=== PATIENT | male | born 1945 | race Caucasian/White ===

== ENCOUNTER → 2017-11-29 11:10 | Outpatient (CLI) | payer OTHER, SELFPAY ==
--- NOTE | 2017-11-29 | DI.RAD.S_ITS ---
PROCEDURE: XR KUB INDICATIONS: KIDNEY STONES TECHNIQUE: One view of the abdomen acquired. COMPARISON: [facility], CR, XR ABDOMEN 1 VIEW, 10/27/2017, 11:22. [facility], CR, XR KUB, 10/14/2017, 16:36. FINDINGS: Surgical changes and devices: The previously present left ureteral stent has been withdrawn. Bowel: Bowel gas pattern is normal. Soft tissues: No new suspicious abdominal calcifications are found, and upper third and lower third right renal collecting system small calculi are again seen measuring approximately 3 mm and 2 mm respectively on the right. The calculus at the left lower third collecting system appears to have diminished in conspicuity, possibly reflecting lithotripsy.. Visualized solid organ contours appear normal in size. Bones: No suspicious bony lesions. IMPRESSION: Removal of double pigtail left ureteral stent subsequent to the comparison plain film from 10/27/17. Possible interval fragmentation procedure involving the lower third collecting system calculus on the left where small fragments appear present rather than a single formed stone (which could be seen 10/27/17). 2 small right-sided renal collecting system calculi (upper third and lower third) appear stable over time. Dictated by: Ken Duenas M.D. on 11/29/2017 at 12:41 Approved by: Ken Duenas M.D. on 11/29/2017 at 12:46
[2017-11-29 12:53] LABS: Calcium 9.4 mg/dL (8.4-10.2)
[2017-11-30 14:44] LABS: Parathyroid Hormone Int 29 pg/mL (14-64)
== END ==
PROVIDERS: PCP Family Medicine; Visit Provider Specialist
DX: N20.0 Calculus of kidney (principal)
CPT/HCPCS: 36415; 74018; 82310; 83970; 84550

== ENCOUNTER → 2018-01-12 14:49 | Outpatient (CLI) | payer OTHER, SELFPAY ==
--- NOTE | 2018-01-12 | DI.RAD.S_ITS ---
PROCEDURE: XR KUB INDICATIONS: KIDNEY STONES TECHNIQUE: One view of the abdomen acquired. COMPARISON: [facility], , XR KUB, 11/29/2017, 11:25. FINDINGS: Surgical changes and devices: 2 calcification is seen projected over the mid-upper pole the right kidney largest measuring 8 mm and a smaller 3 mm. Posterior small calcifications project over the lower one third of left kidney similar to prior examination largest measuring 5 mm. Bowel: Bowel gas pattern is normal. Soft tissues: No suspicious abdominal calcifications. Visualized solid organ contours appear normal in size. Bones: No suspicious bony lesions. IMPRESSION: Bilateral renal calcifications similar to prior examination. Dictated by: Donavan SALAS Interpreted: Mireille Espinoza MD on 01/12/2018 at 15:20 Approved by: Mireille Espinoza M.D. on 01/12/2018 at 16:28
== END ==
PROVIDERS: PCP Family Medicine; Visit Provider Specialist
DX: N20.0 Calculus of kidney (principal)
CPT/HCPCS: 74018

== ENCOUNTER → 2018-02-14 14:59 | Outpatient (CLI) | payer OTHER, SELFPAY ==
--- NOTE | 2018-02-14 15:02 | DI.RAD.S_ITS ---
PROCEDURE: XR KUB INDICATIONS: KIDNEY STONES TECHNIQUE: One view of the abdomen acquired. COMPARISON: [facility], CR, XR KUB, 10/14/2017, 16:36. [facility], CR, XR KUB, 11/29/2017, 11:25. [facility], CR, XR KUB, 01/12/2018, 15:00. FINDINGS: Surgical changes and devices: None. Bowel: Bowel gas pattern is normal. Soft tissues: Calcific densities are present bilaterally in the areas of kidneys, consistent with renal calculi. Compared with the last exam, there is no significant change. Visualized solid organ contours appear normal in size. Bones: No suspicious bony lesions. IMPRESSION: Persistent bilateral renal calculi. Dictated by: Augustine Funes M.D. on 02/14/2018 at 16:36 Approved by: Augustine Funes M.D. on 02/14/2018 at 16:37
== END ==
PROVIDERS: PCP Family Medicine; Visit Provider Specialist
DX: N20.0 Calculus of kidney (principal)
CPT/HCPCS: 74018

== ENCOUNTER → 2018-03-20 11:26 | Outpatient (CLI) | payer OTHER, SELFPAY ==
--- NOTE | 2018-03-20 | DI.RAD.S_ITS ---
PROCEDURE: XR KUB INDICATIONS: KIDNEY STONES TECHNIQUE: One view of the abdomen acquired. COMPARISON: [facility], CR, XR KUB, 02/14/2018, 14:38. [facility], CR, XR KUB, 01/12/2018, 15:00. [facility], CR, XR KUB, 11/29/2017, 11:25. FINDINGS: Surgical changes and devices: None. Bowel: Bowel gas pattern is normal. Soft tissues: No new suspicious abdominal calcifications. Previously present bilateral small renal calculi are again noted. Visualized solid organ contours appear normal in size. Bones: No suspicious bony lesions. IMPRESSION: The punctate bilateral renal collecting system calculi previously documented have not changed in number or position, and no ureteral stone is found. Dictated by: Ken Duenas M.D. on 03/20/2018 at 12:13 Approved by: Ken Duenas M.D. on 03/20/2018 at 12:14
== END ==
PROVIDERS: PCP Family Medicine; Visit Provider Specialist
DX: N20.0 Calculus of kidney (principal)
CPT/HCPCS: 74018

== ENCOUNTER → 2018-03-29 10:48 | Outpatient (CLI) | payer OTHER, SELFPAY ==
[2018-03-29 13:15] LABS: Blood Urea Nitrogen 25 mg/dL (9-20); Calcium 9.1 mg/dL (8.4-10.2); Carbon Dioxide 30 mmol/L (22-32); Chloride 103 mmol/L (98-107); Estimated Glomerular Filt Rate > 60.0 mL/min (>60); Glucose 90 mg/dL (80-110); HEMOLYSIS < 15 (0-50); Sodium 141 mmol/L (137-145)
== END ==
PROVIDERS: PCP Family Medicine; Visit Provider Specialist
DX: N20.0 Calculus of kidney (principal)
CPT/HCPCS: 36415; 80048

== ENCOUNTER → 2018-04-04 10:54 | Outpatient (CLI) | payer OTHER, SELFPAY ==
--- NOTE | 2018-04-04 | DI.CT.S_ITS ---
PROCEDURE: CT ABDOMEN PELVIS W CON INDICATIONS: ABDOMINAL PAIN TECHNIQUE: After the administration of oral and intravenous contrast, 5 mm thick sections acquired from the diaphragms to the symphysis. 5 mm thick coronal and sagittal reformats were performed. For radiation dose reduction, the following was used: automated exposure control, adjustment of mA and/or kV according to patient size. COMPARISON: [facility], CT, CT KIDNEY URETER BLADDER (KUB), 10/14/2017, 2:45. FINDINGS: Image quality: Excellent. ABDOMEN: Lung bases: Lung bases are clear. Heart size is normal. Solid organs: Liver is normal in size and enhancement. Gallbladder appears normal. Biliary system is non-dilated. Pancreas enhances normally. Spleen is normal in size and enhancement. No adrenal nodules. Kidneys are normal in size and enhancement, without hydronephrosis. There is a punctate 2 mm calculus at the lower third nondistended collecting system of the right kidney and 2 adjacent lower third 3-4 mm calculi are seen at the left kidney. No perinephric edema is found. No retroperitoneal hemorrhage is suspected. Peritoneum and bowel: Stomach, small bowel, and colon loops are normal in caliber and wall thickness. No free fluid or air. Nodes and vessels: No retroperitoneal or mesenteric adenopathy. Aorta and inferior vena cava are normal in caliber. Miscellaneous: No ventral hernias. PELVIS: Genitourinary: Bladder wall thickness is normal. Miscellaneous: No inguinal hernias or adenopathy. Bones: No suspicious bony lesions. No vertebral body compression fractures. IMPRESSION: Small residual calculi are present within the nondistended collecting system of each kidney, inferior third. The remaining calculi are small in size ranging from 2-4 mm as discussed, one on the right and 2 on the left. Dictated by: Ken Duenas M.D. on 04/04/2018 at 13:28 Approved by: Ken Duenas M.D. on 04/04/2018 at 13:30
== END ==
PROVIDERS: PCP Family Medicine; Visit Provider Specialist
DX: N20.0 Calculus of kidney (principal); R10.9 Unspecified abdominal pain
CPT/HCPCS: 74177; Q9967

== ENCOUNTER → 2018-07-03 15:16 | Outpatient (CLI) | payer OTHER, SELFPAY ==
--- NOTE | 2018-07-03 | DI.RAD.S_ITS ---
PROCEDURE: XR KUB INDICATIONS: KIDNEY STONES TECHNIQUE: One view of the abdomen acquired. COMPARISON: [facility], CR, XR ABDOMEN 1 VIEW, 05/11/2018, 11:58. [facility], CT, CT ABDOMEN PELVIS W CON, 04/04/2018, 11:50. [facility], CR, XR KUB, 03/20/2018, 11:35. [facility], CR, XR KUB, 02/14/2018, 14:38. FINDINGS: Surgical changes and devices: None. Bowel: Bowel gas pattern is normal. Soft tissues: Previously by CT scanning a calculus within the lower third collecting system of the right kidney was identified and a larger calculus have been present within the lower third collecting system of the left kidney. Currently the right kidney calculus appears to have been fragmented into least 2 small calcific radiodensities, measuring 3 and 2 mm respectively. The larger calculus on the left may be comprised of discrete smaller adherent calculi given the appearance by plain film 4 separate components, the largest of which measures 4 mm.. Visualized solid organ contours appear normal in size. Bones: No suspicious bony lesions. IMPRESSION: Apparent fragmentation of lower third right renal calculus. On the left the lower third renal collecting system calculus seen by CT scanning may represent several smaller adherent calculi. Dictated by: Ken Duenas M.D. on 07/03/2018 at 16:21 Approved by: Ken Duenas M.D. on 07/03/2018 at 16:27
== END ==
PROVIDERS: PCP Family Medicine; Visit Provider Specialist
DX: N20.0 Calculus of kidney (principal)
CPT/HCPCS: 74018

== ENCOUNTER → 2018-10-30 11:25 | Outpatient (CLI) | payer OTHER, SELFPAY ==
--- NOTE | 2018-10-30 | DI.RAD.S_ITS ---
PROCEDURE: XR KUB INDICATIONS: KIDNEY STONES TECHNIQUE: One view of the abdomen acquired. COMPARISON: [facility], CR, XR KUB, 07/03/2018, 15:25. FINDINGS: Surgical changes and devices: None. Bowel: Bowel gas pattern is normal. Large amount of stool, including projecting within the rectal vault. Soft tissues: No suspicious abdominal calcifications. Visualized solid organ contours appear normal in size. Bones: No suspicious bony lesions. IMPRESSION: No specific evidence of bowel obstruction seen at this time although if the patient's symptoms do not improve, continued surveillance with abdominal series radiographs could be performed. Large amount of stool. Dictated by: Kun Owens M.D. on 10/30/2018 at 12:02 Approved by: Kun Owens M.D. on 10/30/2018 at 12:02
== END ==
PROVIDERS: Family Provider Specialist; PCP Family Medicine; Visit Provider Specialist
DX: N20.0 Calculus of kidney (principal)
CPT/HCPCS: 74018

== ENCOUNTER → 2019-05-14 11:37 | Outpatient (CLI) | payer OTHER, SELFPAY ==
--- NOTE | 2019-05-14 | DI.RAD.S_ITS ---
PROCEDURE: XR CERVICAL SPINE 2V OR 3V INDICATIONS: NECK PAIN TECHNIQUE: 3 view(s) of the cervical spine were acquired. COMPARISON: None. FINDINGS: Bones: No fractures or dislocations to the T1 level. The lateral masses of C1 appear intact on the odontoid view. No suspicious bony lesions. Soft tissues: No prevertebral soft tissue swelling. 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 Posterior projecting osteophytes are most prominent at C5-6, with likelihood of significant spinal and foraminal stenosis at that level. Dictated by: Ken Duenas M.D. on 05/14/2019 at 12:53 Approved by: Ken Duenas M.D. on 05/14/2019 at 12:54
== END ==
PROVIDERS: Family Provider Specialist; PCP Family Medicine; Visit Provider Family Medicine
DX: M50.321 Other cervical disc degeneration at C4-C5 level (principal); M47.812 Spondylosis without myelopathy or radiculopathy, cervical region
CPT/HCPCS: 72040

== ENCOUNTER → 2019-07-02 14:16 | Outpatient (CLI) | payer OTHER, SELFPAY ==
--- NOTE | 2019-07-02 | DI.RAD.S_ITS ---
PROCEDURE: XR KUB INDICATIONS: KIDNEY STONES TECHNIQUE: One view of the abdomen acquired. COMPARISON: [facility], CT, CT ABDOMEN PELVIS W CON, 04/04/2018, 11:50. [facility], CR, XR KUB, 10/30/2018, 11:34. [facility], CR, XR KUB, 07/03/2018, 15:25. FINDINGS: Surgical changes and devices: None. Bowel: Bowel gas pattern is normal. Soft tissues: No new suspicious abdominal calcifications, and the calcifications previously documented to be located within the collecting system of the kidneys bilaterally are again seen, without change in size or position. There is a single calcification at the inferior collecting system on the right and a cluster of smaller calcifications in a similar position on the left.. Visualized solid organ contours appear normal in size. Bones: No suspicious bony lesions. IMPRESSION: The small nonobstructive calculi present within the kidneys bilaterally are unchanged in both size and position. No obstruction has been associated. Dictated by: Ken Duenas M.D. on 07/02/2019 at 16:10 Approved by: Ken Duenas M.D. on 07/02/2019 at 16:12
[2019-07-02 17:55] LABS: Prostate Specific Antigen 1.73 ng/mL (0.10-4.00)
== END ==
PROVIDERS: Family Provider Family Medicine; PCP Family Medicine; Visit Provider Specialist
DX: N20.0 Calculus of kidney (principal); N40.1 Benign prostatic hyperplasia with lower urinary tract symptoms
CPT/HCPCS: 36415; 74018; 84153

== ENCOUNTER → 2019-07-27 11:15 | Outpatient (CLI) | payer OTHER, SELFPAY ==
--- NOTE | 2019-07-27 | DI.RAD.S_ITS ---
PROCEDURE: XR CHEST 2V INDICATIONS: CHRONIC COUGH TECHNIQUE: 2 views of the chest were acquired. COMPARISON: None. FINDINGS: Surgical changes and devices: None. Lungs and pleura: Lungs are clear. No pleural effusions or pneumothorax. Mediastinum: Mediastinal contours are normal. Heart size is normal. Bones and chest wall: No suspicious bony abnormalities. Soft tissues appear unremarkable. IMPRESSION: No acute cardiopulmonary disease process. Dictated by: Katharine Miranda MD, PhD on 07/27/2019 at 12:00 Approved by: Katharine Miranda MD, PhD on 07/27/2019 at 12:04
== END ==
PROVIDERS: Family Provider Family Medicine; PCP Family Medicine; Referring Provider Family Medicine; Visit Provider Family Medicine
DX: R05 Cough (principal)
CPT/HCPCS: 71046

== ENCOUNTER 2019-10-30 14:22 | Emergency (ER) | payer OTHER, SELFPAY ==
[2019-10-30 14:25] VITALS: BP 165/78; PULSE 56; RESP 14; TEMP 36.7; O2SAT 97; BMI 23.6
--- NOTE | 2019-10-30 14:49 | ED_ITS ---
HPI - Male Genitourinary <GABRIELA Dunbar - Last Filed: 10/30/19 19:50> General Chief complaint: Urogenital-Male Stated complaint: Hasn't been able to pee after colonoscopy today Time Seen by Provider: 10/30/19 14:26 Source: patient Mode of arrival: Ambulatory Limitations: no limitations History of Present Illness HPI Narrative: 74-year-old male with history of BPH and urinary retention in the past, presents emergency department stating that he has been unable to urinate since after his colonoscopy. He states he had his colonoscopy at 8:00 a.m. today. He states he feels like he has to urinate, there has been increased pressure, but he has not been able to urinate. Patient states this has happened in the past after he has sedation for a renal calculi a lithotripsy. Patient denies any other symptoms such as abdominal pain, vomiting, blood in stools, chest pain, shortness of breath, fevers, cough, or any other concerns. Patient states he does have a urologist. Related Data Home Medications Medication Instructions Recorded Confirmed lovastatin 20 mg PO QDAY #0 02/14/11 10/14/17 eszopiclone [Lunesta] 2 mg PO BEDTIME 10/14/17 10/14/17 Previous Rx's Medication Instructions Recorded ondansetron [Zofran ODT] 4 mg PO Q4H PRN #10 tab 10/14/17 oxycodone-acetaminophen [Percocet] 1 tab PO Q4-6H PRN #10 tab 10/14/17 phenazopyridine [Pyridium] 200 mg PO TID PRN #7 tab 10/30/19 Allergies Allergy/AdvReac Type Severity Reaction Status Date / Time No Known Drug Allergies Allergy Verified 10/30/19 14:32 Review of Systems <GABRIELA uDnbar - Last Filed: 10/30/19 19:50> Review of Systems Narrative: REVIEW OF SYSTEMS: GENERAL: Denies fever or chills. HENT: No head trauma, hearing loss or sore throat. EYES: No vision changes. CARDIOVASCULAR: No chest pain or syncope. RESPIRATORY: No shortness of breath or cough. GASTROINTESTINAL: No nausea, vomiting, diarrhea, or constipation. GENITOURINARY: Patient reports urinary retention, states he is unable to void, see HPI. MUSCULOSKELETAL: No pain, weakness, or deformities. INTEGUMENTARY: No rash, lesions, or pruritus. Patient History <GABRIELA Dunbar - Last Filed: 10/30/19 19:50> Medical History BPH (benign prostatic hyperplasia) (Acute) Surgical History No significant past surgical history (Acute) Social History Smoking Status: Never smoker alcohol intake: never substance use type: does not use additional social history: Family and social history is otherwise noncontributory. Smoking Status: Never smoker alcohol intake frequency: 0-2 drinks per day Substance Use Type: does not use Exam <GABRIELA Dunbar - Last Filed: 10/30/19 19:50> Initial Vital Signs Initial Vital Signs: Vital Signs Temperature 98.1 F 10/30/19 14:25 Pulse Rate 56 L 10/30/19 14:25 Respiratory Rate 14 10/30/19 14:25 Blood Pressure 165/78 H 10/30/19 14:25 Pulse Oximetry 97 10/30/19 14:25 PHYSICAL EXAMINATION: GENERAL: Well groomed, alert, and cooperative. Answers questions promptly and appropriately. Vital signs noted. HENT: Normocephalic, atraumatic. Hearing intact. Oral mucosa is pink and moist. EYES: Conjunctiva pink, sclera white, no periorbital swelling. CARDIOVASCULAR: Regular rate. RESPIRATORY: Normal respiratory rate, trachea midline, airway patent. No stridor, nasal flaring or accessory muscle use. GASTROINTESTINAL: Bowel sounds slightly decreased. Abdomen is soft and non- tender. Bladder was initially palpated, this was resolved after placement of catheter. GENITALURINARY: No flank tenderness. Urine yellow without cloudiness, no blood present. MUSCULOSKELETAL: Normal gait and coordination. Equal tone and mass bilaterally. EXTREMITIES: CMS intact, no pedal edema. SKIN: Warm, dry, soft, appropriate color for ethnicity. No lesions, rashes, or wounds to visualized areas. NEURO: Alert and Oriented X 3. Good coordination. No ataxia, or sensory deficits, or cognitive issues. PSYCH: Appropriate affect and mood. <Jose Miguel Walton DO - Last Filed: 10/31/19 07:08> Initial Vital Signs Initial Vital Signs: Vital Signs Temperature 98.1 F 10/30/19 14:25 Pulse Rate 56 L 10/30/19 14:25 Respiratory Rate 14 10/30/19 14:25 Blood Pressure 165/78 H 10/30/19 14:25 Pulse Oximetry 97 10/30/19 14:25 Course <GABRIELA Dunbar - Last Filed: 10/30/19 19:50> Course Course Narrative: Catheter was inserted by nursing, nursing used a coude catheter, 650 mL of urine was drained from bladder upon insertion. Patient was re-evaluated at this point, states he is feeling much better in all pain and pressure has been relieved. Patient requesting Pyridium as he gets urethral irritation when catheters have been inserted in the past. Orders Ordered: ED Orders 10/30/19 15:07 Urinalysis and Microscopic Stat Consultations Consultation #1: Patient staffed with Dr. Walton, discussed test, test results, and follow-up. Vital Signs Vital signs: Vital Signs - 8 hr 10/30/19 14:25 10/30/19 16:27 Temperature 98.1 F Pulse Rate 56 L 60 Respiratory Rate 14 16 Blood Pressure 165/78 H 154/70 H Pulse Oximetry 97 97 <Jose Miguel Walton DO - Last Filed: 10/31/19 07:08> Orders Ordered: ED Orders 10/30/19 15:07 Urinalysis and Microscopic Stat Vital Signs Vital signs: Vital Signs - 8 hr 10/30/19 14:25 10/30/19 16:27 Temperature 98.1 F Pulse Rate 56 L 60 Respiratory Rate 14 16 Blood Pressure 165/78 H 154/70 H Pulse Oximetry 97 97 MDM - Male Genitourinary <GABRIELA Dunbar - Last Filed: 10/30/19 19:50> Medical Records Attestation: I reviewed the patient's medical records. Lab Data Attestation: I reviewed the patient's lab results. Labs: Lab Results 10/30/19 Range/Units 15:07 Urine Color Yellow Urine Appearance Clear Urine pH 7.0 (4.5-8.0) Ur Specific [place] <=1.005 (1.000-1.035) Urine Protein Negative (Negative) Urine Glucose (UA) Negative (Negative) g/dL Urine Ketones Negative (NEGATIVE) Urine Occult Blood Trace-intact (Negative) Urine Nitrate Negative (Negative) Urine Bilirubin Negative (NEGATIVE) Urine Urobilinogen 0.2 (0.2) E.U./dL Ur Leukocyte Esterase Negative (NEGATIVE) Urine RBC None seen (0-5/HPF) Urine WBC None seen (0-5/HPF) Urine Bacteria None seen (None) Ur Culture Indicated? Cult not indicated Micro UA Comment Microscopic normal MDM Narrative Medical decision making narrative: 74-year-old male with history of BPH and urinary retention requiring multiple catheters in the past, presents emergency department for urinary retention since 0800 this morning after a colonoscopy with sedation. I suspect patient's urinary tension is most likely caused by a combination of sedation and BPH. Catheter was inserted, patient reported instant relief of symptoms, 650 mL of urine was drained. Urine was sent for testing, no concerns for infection due to lack of bacteria, white blood cells, and blood. Less concern for other urinary etiologies such as renal calculi or prostatitis due to lack of pain or systemic symptoms such as fever or dysuria. Less likely complication of colonoscopy due to lack of abdominal pain. I suspect slightly decreased bowel sounds due to recent colonoscopy. Patient was encouraged to follow up with established urologist. He was given a leg bag with return precautions. Patient agreed to plan of care verbalized understanding. <Jose Miguel Walton, DO - Last Filed: 10/31/19 07:08> Lab Data Labs: Lab Results 10/30/19 Range/Units 15:07 Urine Color Yellow Urine Appearance Clear Urine pH 7.0 (4.5-8.0) Ur Specific [place] <=1.005 (1.000-1.035) Urine Protein Negative (Negative) Urine Glucose (UA) Negative (Negative) g/dL Urine Ketones Negative (NEGATIVE) Urine Occult Blood Trace-intact (Negative) Urine Nitrate Negative (Negative) Urine Bilirubin Negative (NEGATIVE) Urine Urobilinogen 0.2 (0.2) E.U./dL Ur Leukocyte Esterase Negative (NEGATIVE) Urine RBC None seen (0-5/HPF) Urine WBC None seen (0-5/HPF) Urine Bacteria None seen (None) Ur Culture Indicated? Cult not indicated Micro UA Comment Microscopic normal Discharge Plan Departure Patient Disposition: Home Clinical Impression: Acute urinary retention Discharge Date/Time: 10/30/19 16:10 Instructions: How to Care for Your Caballero Catheter -- Male, DI for Urinary Retention in Men Activity Restrictions/Additional Instructions: Thank you for entrusting me with your care today. As discussed, your urinary retention is most likely caused by your enlarged prostate and by the sedation used in today's procedure. Your urinalysis was negative for any bacteria. We have placed a a catheter in your bladder, this will drain urine. I prescribed you Pyridium to help with irritation, this will turn your urine orange. Please follow-up with your urologist as we discussed. Return emergency department for any new or worsening symptoms such as high fevers, shortness of breath, abdominal pain, or any other concerns. Prescriptions: New phenazopyridine [Pyridium] 200 mg tablet 200 mg PO TID PRN (Reason: pain) Qty: 7 RF: 0 No Action lovastatin 40 MG tablet 20 mg PO QDAY Qty: 0 RF: 0 eszopiclone [Lunesta] 2 mg Tablet 2 mg PO BEDTIME RF: 0 oxycodone-acetaminophen [Percocet] 5-325 mg tablet 1 tab PO Q4-6H PRN (Reason: pain) Qty: 10 RF: 0 ondansetron [Zofran ODT] 4 mg tablet,disintegrating 4 mg PO Q4H PRN (Reason: nausea and vomiting) Qty: 10 RF: 0 Referrals: Jose Miguel Deleon MD [Primary Care Provider] - <Jose Miguel Walton DO - Last Filed: 10/31/19 07:08> Cosign ED Attending Cosignature Attestation: Dr Walton Co-Sign Statement: I was available for consultation during this patient's emergency department visit. This chart is signed by myself for administrative purposes only. I did not have direct contact with this patient during this visit. They were seen independently by the APC.
--- NOTE | 2019-10-30 15:10 | PC.NURSE ---
Addendum entered by Bruna Hernandez R.N. 10/30/19 15:12: h/o BPH* 16F coude cath placed with 600mL output. pt reports feeling better. urine sample obtained and sent to lab. NAD Original Note: pt states he had a colonoscopy this morning at [facility] and now he is unable to urinate. h/o BOH states this has happened in the past post colonoscopy and it was from the anaesthesia. bladder scan showed about 650mL. 16F coude cath
[2019-10-30 15:14] LABS: Bacteria Urine None Seen; RBC Urine None Seen (0-5/HPF); WBC Urine None Seen (0-5/HPF)
[2019-10-30 15:16] LABS: Appearance Urine UA CLEAR; Bilirubin Urine UA NEGATIVE (NEGATIVE); Color Urine UA YELLOW; Glucose Urine UA NEGATIVE (Negative); Ketones Urine UA NEGATIVE (NEGATIVE); Leukocyte Esterase Urine UA NEGATIVE (NEGATIVE); Nitrite Urine UA NEGATIVE (Negative); Occult Blood Urine UA TRACE-INTACT (Negative); Protein Urine UA NEGATIVE (Negative); Specific Gravity Urine UA <=1.005 (1.000-1.035); Urobilinogen Urine UA 0.2 E.U./dL (0.2)
[2019-10-30 15:24] LABS: Culture Indicated Urine Cult Not Indicated; Urine Comments Microscopic Normal
[2019-10-30 16:27] VITALS: BP 154/70; PULSE 60; RESP 16; O2SAT 97
--- NOTE | 2019-10-30 16:28 | PC.NURSE ---
leg bag applied and education provided
== END 2019-10-30 16:10 | disposition home or self-care (01) ==
PROVIDERS: Emergency Provider Nurse Practitioner; Family Provider Family Medicine; PCP Family Medicine
DX: R33.9 Retention of urine, unspecified (principal)
CPT/HCPCS: 51701; 51798; 81001; 99284

== ENCOUNTER → 2020-01-08 14:12 | Outpatient (CLI) | payer OTHER, SELFPAY ==
--- NOTE | 2020-01-08 14:13 | DI.RAD.S_ITS ---
PROCEDURE: XR KUB INDICATIONS: kidney stone TECHNIQUE: One view of the abdomen acquired. COMPARISON: [facility], CT, CT ABDOMEN PELVIS W CON, 04/04/2018, 11:50. [facility], CR, XR KUB, 10/30/2018, 11:34. [facility], CR, XR KUB, 07/03/2018, 15:25. [facility], CR, XR KUB, 07/02/2019, 14:51. FINDINGS: Surgical changes and devices: None. Bowel: Bowel gas pattern is normal. Soft tissues: Bilateral calcifications over the area of kidneys as seen on the last exam. No definitive ureteral stones visualized on x-ray. Visualized solid organ contours appear normal in size. Bones: No suspicious bony lesions. IMPRESSION: Bilateral renal calculi are present, unchanged from the last exam. Dictated by: Augustine Funes M.D. on 01/08/2020 at 15:44 Approved by: Augustine Funes M.D. on 01/08/2020 at 15:46
[2020-01-08 15:28] LABS: Calcium 9.2 mg/dL (8.4-10.2); Uric Acid 4.9 mg/dL (3.5-8.5)
[2020-01-08 15:59] LABS: Prostate Specific Antigen 0.554 ng/mL (0.10-4.00)
[2020-01-09 14:08] LABS: Parathyroid Hormone Int 40 pg/mL (15-65)
== END ==
PROVIDERS: Family Provider Family Medicine; PCP Family Medicine; Referring Provider Specialist; Visit Provider Specialist
DX: N20.0 Calculus of kidney (principal); N40.0 Benign prostatic hyperplasia without lower urinary tract symptoms
CPT/HCPCS: 36415; 74018; 82310; 83970; 84153; 84550

== ENCOUNTER → 2020-01-16 15:36 | Outpatient (CLI) | payer OTHER, SELFPAY ==
--- NOTE | 2020-01-16 15:37 | DI.MRI.S_ITS ---
PROCEDURE: MR CERVICAL SPINE WO CON INDICATIONS: Right progressive neck pain TECHNIQUE: Noncontrast sagittal T1 spin echo and T2 fast spin echo, sagittal STIR, foraminal oblique sagittal T2 fast spin echo, and axial gradient echo or T2 fast spin echo through the cervical spine. COMPARISON: None. FINDINGS: Image quality: Diagnostic, with note made of motion artifact. Alignment and Curvature: There is normal bony alignment. Bone Marrow: Marrow demonstrates normal overall signal. Spinal Cord: Visualized spinal cord has normal size and signal. No cerebellar tonsillar herniation. Paraspinous Soft Tissues: No paravertebral masses. Prevertebral soft tissues are normal in thickness. C2-C3: The disc height is well-preserved. Loss of disc signal is seen at this level. Mild to moderate disc osteophyte complex is seen. There is a mild central disc protrusion. There is at least moderate right-sided and [id number] left-sided facet hypertrophy seen. There is moderate to severe right-sided and moderate left-sided neural foraminal narrowing seen. Mild to moderate central canal narrowing is seen. C3-C4: Moderate loss of disc height is seen. Loss of disc signal is seen. Moderate disc osteophyte complex is seen, which is eccentric to the right. There is moderate to prominent right-sided and moderate left-sided facet hypertrophy seen. There is moderate to severe right-sided and moderate left-sided neural foraminal narrowing seen. Moderate central canal narrowing is seen. There is associated mass effect upon the ventral spinal cord. C4-C5: Moderate loss of disc height is seen. Loss of disc signal is seen. At least moderate disc osteophyte complex is seen. Moderate facet joint hypertrophy is seen. Moderate to severe bilateral neural foraminal narrowing is seen at this level. At least moderate central canal narrowing is seen. There is mild mass effect upon the ventral spinal cord. C5-C6: Moderate to severe loss of disc height and disc signal can be seen. Moderate prominent disc osteophyte complex is seen, which is eccentric to the right. Uncovertebral joint hypertrophy is seen at this level. At least moderate facet hypertrophy is seen. Moderate to severe bilateral neural foraminal narrowing is seen. Severe central canal narrowing is seen, as on series 4, image 27, with associated ventral cord flattening. C6-C7: Moderate to severe loss of disc height and disc signal can be seen. Moderate prominent disc osteophyte complex is seen, which is eccentric to the right. Uncovertebral joint hypertrophy is seen at this level. Moderate facet joint hypertrophy is seen. Moderate to severe bilateral neural foraminal narrowing is seen. Moderate to severe central canal narrowing is seen, with associated ventral cord flattening, as on series 4, image 31. C7-T1: Mild to moderate loss of disc height and disc signal can be seen. Mild to moderate disc osteophyte complex is seen. There is moderate right-sided and mild left-sided facet hypertrophy seen. Mild bilateral neural foraminal narrowing is seen. No significant central canal narrowing is seen. IMPRESSION: Multiple levels of degenerative change are seen, which are most prominent at C5-C6 and C6-C7. Dictated by: Jeronimo Powell M.D. on 01/16/2020 at 16:53 Approved by: Jeronimo Powell M.D. on 01/16/2020 at 16:58
== END ==
PROVIDERS: Family Provider Family Medicine; PCP Family Medicine; Referring Provider Family Medicine; Visit Provider Physical Medicine & Rehabilitation
DX: M54.2 Cervicalgia (principal); M47.812 Spondylosis without myelopathy or radiculopathy, cervical region
CPT/HCPCS: 72141

== ENCOUNTER → 2020-03-12 09:38 | Outpatient (CLI) | payer OTHER, SELFPAY ==
--- NOTE | 2020-03-12 | DI.RAD.S_ITS ---
PROCEDURE: XR SHOULDER RT MIN 2V INDICATIONS: RT SHOULDER PAIN TECHNIQUE: 2 views of the shoulder were acquired. COMPARISON: [facility], , SHOULDER MINIMUM 2 VIEW LEFT, 09/29/2006, 15:43. FINDINGS: Bones: No fractures or dislocations. No suspicious bony lesions. Visualized ribs appear intact. Mild joint narrowing with periarticular osteophyte formation of the acromioclavicular joint. Soft tissues: No suspicious soft tissue calcifications. IMPRESSION: Mild acromioclavicular joint degeneration. If pain persists with conservative management, consider CT or MRI. Dictated by: Donavan Smith [facility] Interpreted: Ken Duenas MD on 03/12/2020 at 9:55 Approved by: Ken Duenas M.D. on 03/12/2020 at 17:34
== END ==
PROVIDERS: Family Provider Family Medicine; PCP Family Medicine; Referring Provider Family Medicine; Visit Provider Family Medicine
DX: M25.511 Pain in right shoulder (principal); M19.011 Primary osteoarthritis, right shoulder
CPT/HCPCS: 73030

== ENCOUNTER → 2020-04-05 08:42 | Outpatient (CLI) | payer OTHER, SELFPAY ==
--- NOTE | 2020-04-05 08:43 | DI.MRI.S_ITS ---
PROCEDURE: MR SHOULDER RT WO CON INDICATIONS: cuff tear TECHNIQUE: Noncontrast oblique coronal T2 fast spin echo with fat saturation, oblique sagittal T1 spin echo and T2 fast spin echo with fat saturation, axial T1 spin echo and T2 fast spin echo with fat saturation through the shoulder. COMPARISON: [facility], CR, XR SHOULDER RT MIN 2V, 03/12/2020, 9:30. FINDINGS: Image quality: Excellent. Rotator cuff: There is full thickness tear of the supraspinatus tendon. No tendon retraction or supraspinatus muscle atrophy. The supraspinatus and infraspinatus tendons are intact. There is mild infraspinatus and subscapularis tendinitis. Bones and bursae: No bone marrow contusions or fractures. Moderate acromioclavicular and glenohumeral joint degeneration. The acromion demonstrates conventional anatomy, without an os acromiale. There is subcoracoid bursal fluid, consistent with bursitis. Capsule and soft tissues: There is degenerative fraying of the inferior labrum. In the absence of intra-articular contrast, the glenohumeral ligaments appear intact. The long head of the biceps tendon demonstrates normal location and morphology. The rotator interval appears irregular. The coracohumeral ligament appears thickened. IMPRESSION: 1. Full-thickness tear of the supraspinatus tendon. No supraspinatus tendon retraction or supraspinatus muscle atrophy. 2. Mild infraspinatus and subscapularis tendinitis. 3. Moderate acromioclavicular and glenohumeral joint degeneration. 4. Subcoracoid bursitis. 5. Degenerative fraying of the inferior labrum. 6. Irregular related interval and thickening of coracohumeral ligament. The findings are associated with adhesive capsulitis. Recommend clinical correlation. Dictated by: Augustine Funes M.D. on 04/07/2020 at 10:37 Approved by: Augustine Funes M.D. on 04/07/2020 at 12:53
== END ==
PROVIDERS: Family Provider Family Medicine; PCP Student in an Organized Health Care Education/Training Program; Referring Provider Student in an Organized Health Care Education/Training Program; Visit Provider Student in an Organized Health Care Education/Training Program
DX: M75.121 Complete rotator cuff tear or rupture of right shoulder, not specified as traumatic (principal); M19.011 Primary osteoarthritis, right shoulder; M75.51 Bursitis of right shoulder; M75.91 Shoulder lesion, unspecified, right shoulder
CPT/HCPCS: 73221

== ENCOUNTER → 2020-04-23 10:40 | Outpatient (CLI) | payer OTHER, SELFPAY ==
[2020-04-23 12:56] LABS: COVID19 -Nasal RAPID Negative (Negative)
== END ==
PROVIDERS: Family Provider Family Medicine; PCP Student in an Organized Health Care Education/Training Program; Visit Provider Physician Assistant
DX: Z11.59 Encounter for screening for other viral diseases (principal)
CPT/HCPCS: 87635

== ENCOUNTER → 2020-04-25 07:39 | Outpatient (CLI) | payer OTHER, SELFPAY ==
--- NOTE | 2020-04-25 | DI.ECHO.S_ITS ---
[facility]---------+ [facility] +---------+ : : [address] : : : : [id number] : : : : Phone: [phone]+ Echocardiogram Report + + :Name: JEFF WADE Study Date: 04/25/2020 Height: 68 in : :[facility] Weight: 156 lb: : Gender: Male BSA: 1.8 m2 : :: 1945 Age: 75 yrs BP: 95/55 mmHg: :Reason For Study: BRADYCARDIA : : Performed By: Reddy Hicks : :Referring: LASHON LOPEZ : + + Interpretation Summary Normal left ventricle size with ejection fraction 60-65%. Moderate biatrial enlargement. Mild mitral regurgitation. Mild tricuspid regurgitation. Procedure: A two-dimensional transthoracic echocardiogram with color flow and Doppler was performed. The study quality was technically good. There is no prior echocardiogram noted for this patient. The patient was in normal sinus rhythm during the exam. Left Ventricle: The left ventricle is normal in size. There is normal left ventricular wall thickness. The LVOT velocity is 1.36 m/s. The left ventricular outflow velocity with valsalva is .69 m/s. The ejection fraction is estimated to be 60-65%. There are no focal wall motion abnormalities. Diastolic parameters suggest probable normal left ventricular diastolic function and normal filling pressures. Right Ventricle: The right ventricle is at the upper limits of normal in size. The right ventricular systolic function is normal. Atria: There is moderate biatrial enlargement. There is no Doppler evidence for an atrial septal defect. Mitral Valve: The mitral valve is normal in structure and function. There is mild mitral regurgitation. Aortic Valve: The aortic valve is trileaflet. The aortic valve opens well. No aortic regurgitation is present. Tricuspid Valve: The tricuspid valve is normal in structure and function. There is mild tricuspid regurgitation. The right ventricular systolic pressure is estimated to be at least 28 mmHg based on an estimated right atrial pressure of 3 mm Hg. Pulmonic Valve: The pulmonic valve is normal in structure and function. There is trace pulmonic regurgitation. Great Vessels: The aortic root is normal size. The dimensions of the ascending aorta are normal. The pulmonary artery is normal size. The IVC is of normal diameter and collapses greater than 50% with a sniff. This suggests a low right atrial pressure of 3 mm Hg. Pericardium/ Pleura There is no pericardial effusion. There is no pleural effusion. MMode/2D Measurements & Calculations LVIDd: 4.7 cm LVOT diam: 2.1 cm LVIDs: 2.7 cm Ao root diam: 3.1 cm FS: 41.2 % asc Aorta Diam: 3.2 cm EPSS: 0.24 cm Ao Arch Diam (Prox Trans): 2.5 cm IVSd: 0.84 cm LVPWd: 0.87 cm LV davila. diameter/BSA (cm/m^2): 2.5 LV sys. diameter/BSA (cm/m^2): 1.5 LA dimension: 4.1 cm RA long axis: 4.9 cm LA A2 area: 23.8 cm2 RA area: 22.0 cm2 LA A4 area: 24.4 cm2 RA vol: 84.5 ml LA length (vol): 5.9 cm RA : 46.0 ml/m2 LA vol: 84.1 ml IVC diam: 1.8 cm LA vol index: 45.7 ml/m2 RVD1 (basal): 4.4 cm RVD2 (mid): 4.4 cm Doppler Measurements & Calculations Ao V2 max: 166.8 cm/sec LVOT Max Hai: 136.0 cm/sec Ao V2 mean: 120.7 cm/sec LV V1 max P.4 mmHg Ao max P.1 mmHg LV V1 VTI: 29.0 cm Ao mean P.3 mmHg CELSO(I,D): 2.5 cm2 Ao V2 VTI: 40.4 cm CELSO(V,D): 2.9 cm2 sev ratio: 0.72 CELSO indexed to BSA (cm^2/m^2): 1.4 MV E max hai: 94.1 cm/sec TR max hai: 248.6 cm/sec MV A max hai: 67.2 cm/sec TR max P.7 mmHg MV E/A: 1.4 PA V2 max: 114.9 cm/sec Med Peak E' Hai: 7.6 cm/sec PA V2 mean: 78.4 cm/sec E/E' med: 12.4 PA mean P.7 mmHg Lat Peak E' Hai: 9.1 cm/sec PA pr(Accel): 48.2 mmHg E/E' lat: 10.4 E/e' average: 11.4 MV dec time: 0.19 sec SV(LVOT): 101.5 ml Electronically signed by: Nicci Mejía on Reading Physician:04/25/2020 06:39 PM
--- NOTE | 2020-04-25 17:03 | DI.NM.S_ITS ---
DATE OF SERVICE: 04/25/2020 PROCEDURE PERFORMED: Exercise treadmill, converted to vasodilator pharmacologic stress and rest perfusion imaging study with gating to assess ejection fraction and regional wall motion. ORDERING PROVIDER: Dr. Gracie Lehman. INDICATIONS: The patient is a 75-year-old male with orthostatic hypotension. CARDIAC STRESS: The patient was initially stressed by treadmill and was able to complete 8 minutes of exercise without any chest discomfort but was unable to achieve an adequate heart rate response and therefore was converted to a pharmacologic stress test by injection of 0.4 mg of regadenoson with a normal hemodynamic response. He again had no chest discomfort. His resting ECG showed sinus bradycardia at [address] segments. With stress, he develops 1-2 mm of flat upsloping ST depression that is nonspecific for ischemia. He had occasional PACs and PVCs but no concerning arrhythmias. Per protocol, he was injected with 25.9 millicuries of technetium-99 Myoview and was imaged 20 minutes later, using a gated SPECT acquisition protocol. Earlier in the day, while at rest, he had been injected with 10.6 millicuries of technetium-99 Myoview and was imaged 30 minutes following, again using a gated SPECT acquisition protocol FINDINGS: 1. Raw Data: There is fair myocardial tracer uptake. Lung/heart ratio was normal at 0.40 with a normal TID ratio 0.84. 2. Quantitative Gated SPECT: Post-stress ejection fraction is 78% without any focal wall motion abnormalities. Resting ejection fraction is estimated at 77% with an end-diastolic volume of 104 mL. 3. Myocardial Perfusion Imaging: Post-stress supine images show a fairly normal myocardial perfusion pattern although with a very subtle inferior defect in a pattern consistent with diaphragmatic attenuation artifact, supported by its complete resolution on the prone images. The resting images show an identical perfusion pattern without any areas of improvement. IMPRESSION: 1. Normal myocardial perfusion study. 2. Subtle fixed inferior defect that resolves on prone imaging, consistent with diaphragmatic attenuation artifact. There is no evidence for myocardial ischemia or previous myocardial infarction. 3. Normal left ventricular systolic function without any focal wall motion abnormality. 4. No angina with exercise or pharmacologic vasodilator stress. While he had some ST-segment shifts with pharmacologic stress, these are nonspecific and likely artifactual given the normal perfusion imaging. 5. Compared to the previous myocardial perfusion study of 08/25/2012, a similar perfusion pattern is seen and the previous ejection fraction was estimated at 66-70%. He had upsloping ST depression on that stress test as well that was felt nonspecific for ischemia. Thus, there has been no significant change from the previous exam. Rahul Oquendo - CAMRON/nancy/luis doc#: [id number]/job#: [id number] dd: 04/25/2020 13:08:00 dt: 04/25/2020 16:34:00 DICTATING MD/COPIES TO: Yehuda Arellano MD; Gracie Lehman MD COPIES MNE: JULIANN;
== END ==
PROVIDERS: Family Provider Family Medicine; PCP Student in an Organized Health Care Education/Training Program; Referring Provider Student in an Organized Health Care Education/Training Program; Visit Provider Student in an Organized Health Care Education/Training Program
DX: I08.1 Rheumatic disorders of both mitral and tricuspid valves (principal); I95.1 Orthostatic hypotension; R00.1 Bradycardia, unspecified
CPT/HCPCS: 78452; 93017; 93306; A9502; J2785

== ENCOUNTER → 2020-06-26 07:08 | Outpatient (CLI) | payer OTHER, SELFPAY ==
[2020-06-26 09:31] LABS: Cortisol AM (Before 10AM) 8.75 ug/dL (4.46-22.7)
[2020-06-26 09:45] LABS: TSH w/ Reflex to FT4 2.28 uIU/mL (0.47-4.68)
== END ==
PROVIDERS: PCP Student in an Organized Health Care Education/Training Program; Referring Provider Internal Medicine Cardiovascular Disease; Visit Provider Internal Medicine Cardiovascular Disease
DX: R00.1 Bradycardia, unspecified (principal); R53.83 Other fatigue
CPT/HCPCS: 36415; 82533; 84443

== ENCOUNTER → 2020-08-25 07:54 | Outpatient (CLI) | payer MEDICARE, SELFPAY ==
[2020-08-25] MEDS: COVID-19 VACC, Ad26(JANSSEN)/PF 0.5 ML IM (08:04)
== END ==
PROVIDERS: PCP Student in an Organized Health Care Education/Training Program; Visit Provider Internal Medicine
DX: Z23 Encounter for immunization (principal)
CPT/HCPCS: 0031A; 91303

== ENCOUNTER → 2020-09-23 12:23 | Outpatient (CLI) | payer OTHER, SELFPAY ==
--- NOTE | 2020-09-23 12:26 | DI.RAD.S_ITS ---
PROCEDURE: XR KUB INDICATIONS: Right flank pain TECHNIQUE: One view of the abdomen acquired. COMPARISON: [facility], CR, XR KUB, 01/08/2020, 14:09. FINDINGS: Surgical changes and devices: None. Bowel: Bowel gas pattern is normal. Soft tissues: Renal contours are partially obscured by stool contents. No suspicious abdominal calcifications. Visualized solid organ contours appear normal in size. Bones: No suspicious bony lesions. IMPRESSION: 1. Renal stones are likely present but kidneys are partially obscured by colonic stool. No definitive ureteral stones. Dictated by: Augustine Funes M.D. on 09/23/2020 at 12:59 Approved by: Augustine Funes M.D. on 09/23/2020 at 13:08
== END ==
PROVIDERS: PCP Student in an Organized Health Care Education/Training Program; Referring Provider Specialist; Visit Provider Specialist
DX: R10.9 Unspecified abdominal pain (principal); Z87.442 Personal history of urinary calculi
CPT/HCPCS: 74018

== ENCOUNTER → 2020-09-29 08:08 | Outpatient (CLI) | payer OTHER, SELFPAY ==
--- NOTE | 2020-09-29 08:15 | DI.CT.S_ITS ---
PROCEDURE: CT KIDNEY URETER BLADDER (KUB) INDICATIONS: bilateral flank pains at times history kidney stones TECHNIQUE: Noncontrast 5 mm thick sections acquired from the diaphragms to the symphysis. 5 mm thick coronal and sagittal reformats were then performed. For radiation dose reduction, the following was used: automated exposure control, adjustment of mA and/or kV according to patient size. COMPARISON: [facility], CT, CT KIDNEY URETER BLADDER (KUB), 10/14/2017, 2:45. FINDINGS: Image quality: Excellent. Lung bases: Lung bases are clear. Heart size is normal. Urinary system: Both kidneys are normal in size. There is a calculus within the lower 3rd collecting system of the kidneys, 1 each, measuring 3 x 4 mm on the right and 5 x 6 mm on the left. Neither of these calculi are obstructive. The radiodensity of the left kidney is 417 Hounsfield units.. No hydronephrosis or perinephric fat stranding. Both ureters appear non-dilated throughout their expected courses. Bladder wall thickness is normal; no calcified bladder stones. Other solid organs: Liver is normal in size. Gallbladder is normal. Pancreas is normal in contours. Spleen is normal in size. No adrenal nodules. Peritoneum and bowel: Unenhanced bowel loops demonstrate normal wall thickness and caliber. No free fluid or air. Nodes and vessels: No retroperitoneal or mesenteric adenopathy by size criteria. Aorta and inferior vena cava are normal in caliber. Abdominal wall: No ventral hernias. Pelvis: No free pelvic fluid. No inguinal hernias or adenopathy. Bones: No suspicious bony lesions. No vertebral body compression fractures. IMPRESSION: There is a nonobstructive calculus within the lower 3rd collecting system of each kidney, larger on the left than the right, with radiodensity measuring approximately a 420 Hounsfield units. No mass or evidence of obstructive uropathy is found. Dictated by: Ken Duenas M.D. on 09/29/2020 at 13:09 Approved by: Ken Duenas M.D. on 09/29/2020 at 13:13
== END ==
PROVIDERS: PCP Student in an Organized Health Care Education/Training Program; Referring Provider Specialist; Visit Provider Specialist
DX: N20.0 Calculus of kidney (principal); R10.9 Unspecified abdominal pain; Z87.442 Personal history of urinary calculi
CPT/HCPCS: 74176

== ENCOUNTER → 2020-10-24 10:16 | Outpatient (CLI) | payer OTHER, SELFPAY ==
[2020-10-24 11:55] LABS: Prostate Specific Antigen 0.594 ng/mL (0.10-4.00)
== END ==
PROVIDERS: PCP Student in an Organized Health Care Education/Training Program; Referring Provider Specialist; Visit Provider Specialist
DX: N40.0 Benign prostatic hyperplasia without lower urinary tract symptoms (principal)
CPT/HCPCS: 36415; 84153

== ENCOUNTER → 2021-11-30 10:32 | Outpatient (CLI) | payer OTHER, SELFPAY ==
--- NOTE | 2021-11-30 10:33 | DI.RAD.S_ITS ---
PROCEDURE: XR KUB INDICATIONS: nephrolithiasis TECHNIQUE: One view of the abdomen acquired. COMPARISON: [facility], CT, CT KIDNEY URETER BLADDER (KUB), 09/29/2020, 8:16. [facility], CR, XR KUB, 09/23/2020, 12:33. FINDINGS: Surgical changes and devices: Partially visualized cardiac pacer leads.. Bowel: Bowel gas pattern is normal. Soft tissues: Small densities project over the kidneys which may represent tiny renal stones. No definite stones identified along the expected course of the ureters. Visualized solid organ contours appear normal in size. Bones: No suspicious bony lesions. IMPRESSION: Possible bilateral renal stones. Dictated by: Katharine Miranda MD, PhD on 11/30/2021 at 11:27 Approved by: Katharine Miranda MD, PhD on 11/30/2021 at 11:29
== END ==
PROVIDERS: PCP Student in an Organized Health Care Education/Training Program; Referring Provider Specialist; Visit Provider Specialist
DX: N20.0 Calculus of kidney (principal)
CPT/HCPCS: 74018

== ENCOUNTER → 2022-03-24 09:45 | Outpatient (CLI) | payer OTHER, SELFPAY ==
[2022-03-24 11:55] LABS: Prostate Specific Antigen 0.713 ng/mL (0.10-4.00)
== END ==
PROVIDERS: PCP Family Medicine; Referring Provider Specialist; Visit Provider Specialist
DX: N40.1 Benign prostatic hyperplasia with lower urinary tract symptoms (principal); N13.8 Other obstructive and reflux uropathy; N20.0 Calculus of kidney; Z87.442 Personal history of urinary calculi
CPT/HCPCS: 36415; 84153

== ENCOUNTER → 2022-12-22 13:25 | Outpatient (CLI) | payer OTHER, SELFPAY ==
[2022-12-22 15:40] LABS: Prostate Specific Antigen 0.748 ng/mL (0.10-4.00)
== END ==
PROVIDERS: Specialist; PCP Family Medicine; Referring Provider Family Medicine; Visit Provider Family Medicine
DX: N40.1 Benign prostatic hyperplasia with lower urinary tract symptoms (principal); N13.8 Other obstructive and reflux uropathy
CPT/HCPCS: 36415; 84153

== ENCOUNTER → 2023-01-06 10:24 | Outpatient (CLI) | payer OTHER, SELFPAY ==
--- NOTE | 2023-01-06 10:24 | DI.RAD.S_ITS ---
PROCEDURE: XR KUB INDICATIONS: Kidney stones TECHNIQUE: One view of the abdomen acquired. COMPARISON: [facility], CT, CT ABDOMEN PELVIS W CON, 04/04/2018, 11:50. [facility], CT, CT KIDNEY URETER BLADDER (KUB), 09/29/2020, 8:16. [facility], CR, XR KUB, 09/23/2020, 12:33. [facility], CR, XR KUB, 11/30/2021, 10:21. FINDINGS: Surgical changes and devices: None. Bowel: Bowel gas pattern is normal. Soft tissues: There is a 0.6 x 1.5 cm hyperdensity above the superior pole of the left kidney, probably outside of the kidney. Small stones are seen in the inferior pole of the left kidney. The right kidney is partially obscured by stool content. Question stones in the inferior pole of the right kidney. Visualized solid organ contours appear normal in size. Bones: No suspicious bony lesions. IMPRESSION: 1. Small stones in left kidney. 2. Right kidney is partially obscured by shoe content. There may be stones in the inferior pole of the right kidney. Dictated by: Augustine Funes M.D. on 01/06/2023 at 11:38 Approved by: Augustine Funes M.D. on 01/06/2023 at 11:43
== END ==
PROVIDERS: PCP Family Medicine; Referring Provider Specialist; Visit Provider Specialist
DX: N40.1 Benign prostatic hyperplasia with lower urinary tract symptoms (principal); N13.8 Other obstructive and reflux uropathy; N20.0 Calculus of kidney; Z87.442 Personal history of urinary calculi
CPT/HCPCS: 51798; 74018; 81002; 99215

== ENCOUNTER → 2023-12-23 10:13 | Outpatient (CLI) | payer OTHER, SELFPAY ==
--- NOTE | 2023-12-23 10:15 | DI.RAD.S_ITS ---
PROCEDURE: XR KUB INDICATIONS: Kidney Stones TECHNIQUE: One view of the abdomen acquired. COMPARISON: [facility], CR, XR KUB, 11/30/2021, 10:21. [facility], CR, XR KUB, 01/06/2023, 10:20. FINDINGS: Surgical changes and devices: Partially visualized pacer wires. Bowel: Bowel gas pattern is normal. Soft tissues: Query tiny nephroliths in the lower pole of the left kidney. No suspicious abdominal calcifications. Visualized solid organ contours appear normal in size. Bones: No suspicious bony lesions. IMPRESSION: Query tiny nephroliths in the lower pole of the left kidney. If clinically warranted, a CT KUB can be performed for further evaluation. Dictated by: Yara Guadarrama M.D. on 12/23/2023 at 15:38 Approved by: Yara Guadarrama M.D. on 12/23/2023 at 15:40
== END ==
PROVIDERS: PCP Family Medicine; Referring Provider Specialist; Visit Provider Specialist
DX: N20.0 Calculus of kidney (principal); N40.1 Benign prostatic hyperplasia with lower urinary tract symptoms; N13.8 Other obstructive and reflux uropathy; R97.20 Elevated prostate specific antigen [PSA]; Z87.442 Personal history of urinary calculi
CPT/HCPCS: 36415; 74018; 84153

== ENCOUNTER → 2025-03-04 13:03 | Outpatient (CLI) | payer OTHER, SELFPAY ==
--- NOTE | 2025-03-04 13:05 | DI.RAD.S_ITS ---
PROCEDURE: XR KUB INDICATIONS: Follow-up kidney stones TECHNIQUE: One view of the abdomen acquired. COMPARISON: [facility], CT, CT KIDNEY URETER BLADDER (KUB), 09/29/2020, 8:16. [facility], CR, XR KUB, 12/23/2023, 10:53. FINDINGS: Surgical changes and devices: Pacemaker leads. Bowel: Bowel gas pattern is normal. Soft tissues: No definite kidney stones. No suspicious abdominal calcifications. Visualized solid organ contours appear normal in size. Lung bases are clear. Bones: No suspicious bony lesions. IMPRESSION: No definite kidney stones. Consider CT KUB for further evaluation. Dictated by: Curt Lua M.D. on 03/04/2025 at 16:37 Approved by: Curt Lua M.D. on 03/04/2025 at 16:45
== END ==
PROVIDERS: PCP Family Medicine; Referring Provider Urology; Visit Provider Urology
DX: Z12.5 Encounter for screening for malignant neoplasm of prostate (principal); Z87.442 Personal history of urinary calculi
CPT/HCPCS: 36415; 74018; G0103